=== PATIENT | male | born 1995 | race Caucasian/White ===

== ENCOUNTER 2021-02-22 12:09 | Emergency (ER) | payer BC ==
[~2021-02-22] VITALS: Ht 172.7 cm; Wt 68.2 kg
[2021-02-22 12:44] VITALS: BP 129/92
[2021-02-22] MEDS ORDERED: ondansetron/PF 4mg/2ml inj IV ONE (13:00)
[2021-02-22] MEDS ORDERED: normal saline 1000ML IV soln IVB ONE (13:00)
[2021-02-22 13:21] LABS: BASOPHILS % (AUTO) 0.2 % (0-1); EOSINOPHILS % (AUTO) 0 % (0-6); HEMATOCRIT 42.9 % (42.0-52.0); HEMOGLOBIN 15.3 g/dl (14.0-17.9); LYMPHOCYTES # (AUTO) 0.9 X10'3 (1.1-4.8); LYMPHOCYTES % (AUTO) 7.2 % (21-51); MEAN CORPUSCULAR HEMOGLOBIN 30.6 PG (27.0-31.0); MEAN CORPUSCULAR HGB CONC 35.6 g/dL (33.0-36.5); MEAN CORPUSCULAR VOLUME 86.1 FL (78-98); MEAN PLATELET VOLUME 8.7 FL (7.4-10.4); MONOCYTES # (AUTO) 1.2 X10'3 (0-0.9); MONOCYTES % (AUTO) 9.7 % (2-12); NEUTROPHILS # (AUTO) 9.9 X10'3 (1.8-7.7); NEUTROPHILS % (AUTO) 82.9 % (42-75); PLATELET COUNT 202 X10'3 (140-440); RED BLOOD COUNT 4.98 X10'6 (4.70-6.10); RED CELL DISTRIBUTION WIDTH 12.1 % (11.5-14.5)
[2021-02-22 13:33] LABS: ALANINE AMINOTRANSFERASE 34 U/L (12-78); ALBUMIN 3.8 G/DL (3.4-5.0); ALKALINE PHOSPHATASE 81 IU/L (46-116); ANION GAP 15 (8-16); ASPARTATE AMINO TRANSFERASE 22 U/L (10-37); BILIRUBIN,TOTAL 0.8 MG/DL (0.1-1.0); BLOOD UREA NITROGEN 9 MG/DL (7-18); BUN/CREATININE RATIO 9.3 (5.4-32.0); CALCIUM 8.7 MG/DL (8.5-10.1); CHLORIDE 101 MMOL/L (99-107); CREATININE 0.97 MG/DL (0.60-1.10); GLUCOSE 113 MG/DL (70-104); LIPASE 56 U/L (73-393); POTASSIUM 3.4 MMOL/L (3.5-5.1); SODIUM 142 MMOL/L (135-145); TOTAL CARBON DIOXIDE 25.7 MMOL/L (24-32); TOTAL PROTEIN 7.6 G/DL (6.4-8.2); eGFR > 90 ML/MIN
[2021-02-22] MEDS ORDERED: iohexol 300mg/ml 100ml inj. ONE (15:50)
[2021-02-22] MEDS ORDERED: methylPREDNISolone sod succ 125mg/2ml vial IV ONE ×2 (16:35→16:45)
[2021-02-22] MEDS ORDERED: METR-159 PO (16:47)
[2021-02-22] MEDS ORDERED: CIPR-429 PO (16:47)
== END 2021-02-22 17:15 | disposition home or self-care (01) ==
LOC: ER 12:09
DX: K51.00 Ulcerative (chronic) pancolitis without complications (principal); R50.9 Fever, unspecified; Z20.822 Contact with and (suspected) exposure to COVID-19; Z88.0 Allergy status to penicillin; Z79.899 Other long term (current) drug therapy
CPT/HCPCS: 36415; 71045; 74177; 80053; 83690; 84145; 85025; 87635; 96361; 96374; 96375; 99285; C9803; J2405; J2930; J7030; Q9967